=== PATIENT | female | born 1990 | race African-American/Black ===

== ENCOUNTER 2025-06-08 23:37 | Observation (INO) | payer OTHER ==
[~2025-06-08] VITALS: Ht 165.1 cm; Wt 62.5 kg
[~2025-06-08 23:37] MED LIST: ACYCLOVIR400 MG PO; GABAPENTIN100 MG PO; GRALISE600 MG PO; LEXAPRO20 MG PO
[2025-06-08] MEDS ORDERED: LORazepam 2 MG/ML VIAL IV ONE (23:45)
[2025-06-08] MEDS ORDERED: SODIUM CHLORIDE 0.9% 1,000 ML IV ONE (23:45)
[2025-06-09] VITALS (7 sets, daily range): BP systolic 112–131; BP diastolic 64–88
[2025-06-09 00:08] LABS: BASOPHILS 0.3 % (0.1-1.2); EOSINOPHILS 4.7 % (0.7-5.8); LYMPHOCYTES 22.5 % (19.3-51.7); MCH 28.4 PG (25.6-32.2); MCHC 34.5 g/dL (32.2-35.5); MCV 82.3 fL (79.4-94.8); MONOCYTES 6.5 % (4.7-12.5); NEUTROPHILS 65.9 % (34.0-71.1); RBC 4.97 M/uL (3.93-5.22)
[2025-06-09] MEDS ORDERED: PROCHLORPERAZINE EDISYLATE 10 MG/2 ML VIAL IV ONE (00:15)
[2025-06-09] MEDS ORDERED: SODIUM CHLORIDE 0.9% 1,000 ML IV SCH ×2 (00:45→13:45)
[2025-06-09 00:46] LABS: BLOOD/HGB, URINE NEGATIVE (Negative); KETONE, URINE NEGATIVE (Negative); LEUK ESTERASE, URINE NEGATIVE (negative); NITRITE, URINE NEGATIVE (negative)
[2025-06-09 00:49] LABS: ALCOHOL, MEDICAL <3 ng/dL (<3); ALT (SGPT) 20 U/L (14-59); AST (SGOT) 13 U/L (15-37); GLOMERULAR FILTRATION RATE,EST 77 mL/min (>60); PROTEIN, TOTAL 7.1 g/dL (6.4-8.2); TSH, 3RD GENERATION 4.303 uIU/mL (0.358-3.740); UREA NITROGEN 13 mg/dL (7-18)
[2025-06-09 00:57] LABS: AMPHETAMINES, URINE NEGATIVE (NEGATIVE); BARBITURATES, URINE NEGATIVE (NEGATIVE); BENZODIAZEPINE, URINE NEGATIVE (NEGATIVE); CANNABINOID, URINE POSITIVE (NEGATIVE); COCAINE, URINE NEGATIVE (NEGATIVE); ECSTASY, URINE NEGATIVE (NEGATIVE); FENTANYL, URINE NEGATIVE (NEGATIVE); METHADONE, URINE NEGATIVE (NEGATIVE); OPIATES, URINE NEGATIVE (NEGATIVE); OXYCODONE, URINE NEGATIVE (NEGATIVE); PHENCYCLIDINE, URINE NEGATIVE (NEGATIVE)
[2025-06-09 06:24] LABS: GLOMERULAR FILTRATION RATE,EST 98.0 mL/min (>60); UREA NITROGEN 8.0 mg/dL (7-18)
[2025-06-09] MEDS ORDERED: SODIUM POLYSTYRENE SULFONATE 15 GM/60 ML UDC PO ONE ×2 (09:15→09:30)
[2025-06-09] MEDS ORDERED: POTASSIUM CHLORIDE 10 MEQ/100 ML BAG IV SCH ×2 (09:30→22:15)
[2025-06-09 12:20] LABS: GLOMERULAR FILTRATION RATE,EST 91.0 mL/min (>60); UREA NITROGEN 8.0 mg/dL (7-18)
--- NOTE | 2025-06-09 13:26 | EKG ---
[facility] [address] [facility] [place], [place] [address] Signed Normal sinus rhythm Normal ECG No previous ECGs available Confirmed by Shyam Couch DO ([id number]) on 06/09/2025 1:26:41 PM Electronically Signed By: SHYAM COUCH DO 06/09/25 1326 PATIENT NAME: JODIESABIHA LEE Electrocardiogram DATE OF : [birth year] PHYSICIAN: SHYAM COUCH DO REPORT #: [id number] REPORT IS CONFIDENTIAL AND NOT TO BE RELEASED WITHOUT AUTHORIZATION
[2025-06-09] MEDS ORDERED: ACETAMINOPHEN 325 MG TAB PO PRN (13:45)
--- NOTE | 2025-06-09 14:10 | NUR ---
PT ARRIVED VIA STREACHER, TRANSFERED FROM STREACHER TO BED AND DID WELL WITH MINUMAL ASSISTANCE. PT IS ON A 1:1 WITH A SITTER. AT THIS TIME SHE DOES NOT HAVE A PLAN, BUT WHEN IN THE ED SHE DID HAVE A PLAN.
[2025-06-09] MEDS ORDERED: BUPROPION XL300 MG PO (15:00)
[2025-06-09] MEDS ORDERED: LITHIUM CARBON450 MG PO (15:00)
--- NOTE | 2025-06-09 15:39 | NUR ---
1;[address] IN ROOM AND [address] COUCH INTO SEE PT AT THIS TIME.
--- NOTE | 2025-06-09 16:26 | NUR ---
PT REMAINS ON A 1:1 WITH A SITTER, NO SI OR PLAN AT HIS TIME.
--- NOTE | 2025-06-09 16:40 | NUR ---
PT UP TO THE BATHROOM, AMBULATED WELL STAND BY ASSISTANCE FOR LINES AND TUBES.
--- NOTE | 2025-06-09 17:12 | NUR ---
PT GIVEN DINNER SAFTEY TRAY AND AT THIS TIME SHE IS NOT HUNGRY. WILL LEAVE IT AND IF SHE WANTS THING WARMED UP OR SOMETHING DIFFERENT WILL DO THE BEST TO GET IT.
--- NOTE | 2025-06-09 17:47 | NUR ---
PT MOTHER CAME AT THIS TIME, SITTING IN THE ROOM WITH HER, THE 1:1 SITTER REMAINS AT THE ROOM ALSO AT THIS TIME.
--- NOTE | 2025-06-09 18:26 | NUR ---
PT MEDICATED WITH ZOFRAN 4MG FOR NAUSEA, CONTIOUES TO HAVE DYER, BUT WILL WAIT TO SES IF NAUSEA GOES AWAY TILL SHE TAKE TYLENOL FOR DYER. PT LENNOXR AND SISTER REMAIN IN THE ROMM AT THIS TIME.
--- NOTE | 2025-06-09 19:40 | NUR ---
handoff report received from Christie YADAV. patient resting in bed with eyes closed, RR 20. patient has no needs at this time. patient mother at bedside. 1:1 sitter remains in room.
--- NOTE | 2025-06-09 20:19 | NUR ---
patient up to bathroom to void, steady on feet. patient back to chair, provided with a turkey sandwich. mother remains at bedside. no further needs at this time. 1:1 sitter remains in patient room for patient safety.
[2025-06-09 21:17] LABS: GLOMERULAR FILTRATION RATE,EST 101.0 mL/min (>60); UREA NITROGEN 5.0 mg/dL (7-18)
--- NOTE | 2025-06-09 21:30 | NUR ---
PATIENT PROVIDED WITH TEA PER REQUEST. NO FURTHER NEEDS AT THIS TIME. 1:1 SITTER REMAINS AT BEDSIDE.
--- NOTE | 2025-06-09 21:50 | NUR ---
DR COUCH CALLED AND UPDATED ON PATIENT LAB RESULTS. NEW ORDER RECEIVED FOR 40MEQ IV POTASSIUM REPLACEMENT. VERIFIED VIA REPEAT BACK METHOD.
--- NOTE | 2025-06-09 23:15 | NUR ---
PATIENT AWAKE, NO NEEDS AT THIS TIME. VITAL SIGNS STABLE. PATIENT DENIES NAUSEA OR PAIN AT THIS TIME. 1:1 SITTER REMAINS AT BEDSIDE.
[2025-06-10] VITALS (9 sets, daily range): BP systolic 106–128; BP diastolic 62–89
--- NOTE | 2025-06-10 00:32 | NUR ---
patient up to bathroom, voids, then back to bed. patient steady on feet. patient IVF and potassium infusing per EMAR, IV site WNL. patient provided with more ice water. patient has no further needs at this time. 1:1 sitter remains at bedside.
--- NOTE | 2025-06-10 02:38 | NUR ---
patient up to bathroom to void, then ambulates back to bed. patient steady on feet. denies any pain, nausea, or dizziness. patient provided with washcloth to clean face. patient given fresh water and applesauce. no further needs at this time. 1:1 sitter remains in room for patient safety.
--- NOTE | 2025-06-10 04:40 | NUR ---
patient up to bathroom to void. toothe brush and washcloth provided. patient back to bed. IVF infusing per EMAR, site WNL. patient vital signs stable. no further needs at this time. 1:1 sitter remains at bedside.
[2025-06-10 05:53] LABS: BASOPHILS 0.4 % (0.1-1.2); EOSINOPHILS 6.7 % (0.7-5.8); LYMPHOCYTES 29.7 % (19.3-51.7); MCH 27.8 PG (25.6-32.2); MCHC 33.4 g/dL (32.2-35.5); MCV 83.1 fL (79.4-94.8); MONOCYTES 9.2 % (4.7-12.5); NEUTROPHILS 53.8 % (34.0-71.1); RBC 4.25 M/uL (3.93-5.22)
--- NOTE | 2025-06-10 05:56 | NUR ---
patient up to bathroom to void, then back to bed. patient steady on feet. patient IVF infusing per EMAR. no further needs at this time. 1:1 sitter remains in room. patient denies any pain or nausea at this time.
[2025-06-10 06:14] LABS: ALT (SGPT) 13.0 U/L (14-59); AST (SGOT) 8.0 U/L (15-37); GLOMERULAR FILTRATION RATE,EST 98.0 mL/min (>60); PROTEIN, TOTAL 5.4 g/dL (6.4-8.2); UREA NITROGEN 4.0 mg/dL (7-18)
[2025-06-10] MEDS ORDERED: POTASSIUM CHLORIDE 10 MEQ TABCR PO ONE (07:15)
--- NOTE | 2025-06-10 07:45 | NUR ---
REPORT RECEIVED FROM CYNDI YADAV.
--- NOTE | 2025-06-10 08:13 | NUR ---
UR CLINICAL REVIEW: JOSSELINE, MEETS OBS FOR DRUG INGESTION/OVERDOSE. CARDIAC MONITORING, TREND LABS, PSYCH CONSULT WITH [facility] NEEDED [facility] 06/09/2025@ 9823 ORDER MATCHES REG AUTH PENDING, WILL SEND CLINICALS IF REQUESTED. DC PLAN PENDING PSYCH EVAL, LIKELY INPT PSYCHIATRIC FACILITY VS SAFETY PLAN TO HOME. 06/11/25
--- NOTE | 2025-06-10 09:21 | NUR ---
IN TO TALK WITH PT AND HER MOM.
[2025-06-10] MEDS ORDERED: NICOTINE POLACRILEX 2 MG GUM MM PRN (09:30)
[2025-06-10] MEDS ORDERED: POTASSIUM CHLORIDE 10 MEQ TABCR ONE (10:03)
--- NOTE | 2025-06-10 10:17 | NUR ---
PT UP TO SHOWER WITH SHOW CARD WRITER
--- NOTE | 2025-06-10 11:02 | NUR ---
CCS IN TO SEE PT
--- NOTE | 2025-06-10 11:36 | NUR ---
CCS IN ROOM. INFORMED NURSING STAFF IF PATIENT WANTS A PCP, THEY CAN LEAVE A VOICEMAIL FOR CM TO GET PCP ESTABLISHED.
[2025-06-10] MEDS ORDERED: PHARMACY RENAL DOSE ADJUSTMENT 1 DOSE MISC PO SCH (12:00)
--- NOTE | 2025-06-10 12:33 | NUR ---
PT RESTING WITH MOM IN ROOM, UPDATED ON PLAN TO DISCHARGE, WAITING ON MD ORDERS.
[2025-06-10] MEDS ORDERED: QUETIAPINE FUM100 MG PO (13:03)
--- NOTE | 2025-06-10 13:12 | EKG ---
[facility] [address] [facility] [place] [address] Signed Normal sinus rhythm Nonspecific T wave abnormality Abnormal ECG When compared with ECG of 08-JUN-2025 23:54, (Unconfirmed) Nonspecific T wave abnormality now evident in Anterolateral leads Confirmed by Ronny Couch DO ([id number]) on 06/10/2025 1:12:07 PM Electronically Signed By: RONNY COUCH DO 06/10/25 1312 PATIENT NAME: SABIHA FELICIANO Electrocardiogram DATE OF : 89 PHYSICIAN: RONNY COUCH DO REPORT #: [id number] REPORT IS CONFIDENTIAL AND NOT TO BE RELEASED WITHOUT AUTHORIZATION
[2025-06-10] MEDS ORDERED: QUETIAPINE FUMARATE 25 MG TAB PO SCH (21:00)
[2025-06-10] MEDS ORDERED: QUETIAPINE FUMARATE 100 MG TAB PO SCH (21:00)
== END 2025-06-10 14:30 | disposition home or self-care (01) ==
LOC: ED 23:37 → MS 23:39 → ED 06-09 11:16 → CCU 06-09 11:16 → MS 06-10 14:30
PROVIDERS: Family Medicine; ADMIT Student in an Organized Health Care Education/Training Program; ATTEND Student in an Organized Health Care Education/Training Program
DX: T43.592A Poisoning by other antipsychotics and neuroleptics, intentional self-harm, initial encounter (principal); F31.81 Bipolar II disorder; E03.9 Hypothyroidism, unspecified; Z88.1 Allergy status to other antibiotic agents
CPT/HCPCS: 36415; 80048; 80053; 80178; 80307; 81003; 82803; 83735; 84443; 84703; 85025; 93005; 93010; 96365; 96366; 96375; 96376; 99285-25; A9270; G0378; G0480; J0780; J1200; J1790; J2060; J2405; J3480; J7030